=== PATIENT | female | born 1985 | race African-American/Black ===

== ENCOUNTER 2023-03-05 15:01 | Emergency (ER) | payer MEDICAID ==
[~2023-03-05] VITALS: Ht 170.2 cm; Wt 59.0 kg
[2023-03-05 15:15] VITALS: BP 140/82; PULSE 88; RESP 16; TEMP 98.4; O2SAT 99
[2023-03-05 15:46] LABS: HEMATOCRIT. 25.8 % (36.0-48.0); HEMOGLOBIN. 8.2 g/dL (12.0-16.0); MEAN CORPUSCULAR HEMOGLOBIN 21.9 pg (28.0-32.0); MEAN CORPUSCULAR VOLUME 69.2 fL (81.0-99.0); MEAN PLATELET VOLUME 6.7 fl (7.4-10.4); PLATELET 513 x1000/uL (130-400); RED BLOOD CELL COUNT 3.72 mill/uL (4.2-5.4); RED CELL DISTRIBUTION WIDTH 19.8 % (11.6-14.6)
[2023-03-05 16:01] LABS: CHLORIDE 109 mEq/L (98-107); HCG SCREEN NEGATIVE
[2023-03-05 17:39] LABS: PLATELET ESTIMATE INCREASED
== END 2023-03-05 22:17 | disposition left against medical advice (07) ==
LOC: ER 15:01
DX: Z53.21 Procedure and treatment not carried out due to patient leaving prior to being seen by health care provider (principal)
CPT/HCPCS: 36415; 80053; 84703; 85025; 99281